=== PATIENT | male | born 1960 | race Caucasian/White ===

== ENCOUNTER 2020-05-01 13:51 | Emergency (ER) | payer MEDICARE, SELFPAY ==
[2020-05-01 13:52] VITALS: BP 149/87; PULSE 82; RESP 18; TEMP 36.5; O2SAT 97; BMI 29.2
[2020-05-01 14:01] VITALS: BMI 29.2
--- NOTE | 2020-05-01 14:03 | CT_ITS ---
PROCEDURE: CT ANGIO CHEST CLINCIAL INDICATION: left arm numb, severe back pain, chest pain COMPARISON: No exams were available for comparison TECHNIQUE: IV Contrast: 70ML OPTIRAY 350 Axial images obtained with sagittal and coronal reformats. All CT scans at the facility use one or more dose reduction, viz: automated exposure control, ma/kV adjustment per patient size (including targeted exams where dose is matched to indication, i.e. head), or iterative reconstruction technique. FINDINGS: No mediastinal adenopathy or mass evident. There is a small amount fluid in the superior recess of the pericardium. There is no evidence of aortic aneurysm or dissection. No evidence of pulmonary embolus. Pulmonary arteries are somewhat enlarged with a pulmonary artery/aortic ratio of greater than 1. There is also prominence of both right and left main pulmonary artery slightly more prominent on the right measuring up to 3.2 cm. There is a 13 mm noncalcified nodule in the right lower lobe somewhat. There is atelectatic or fibrotic change in the left upper lobe centrally. No lobar consolidation or collapse. No acute bony findings. There are at least 2 gallstones present 1 in the neck of the gallbladder. IMPRESSION: 1. No evidence of pulmonary embolus. The pulmonary arteries are enlarged centrally consistent. This may be seen with pulmonary arterial hypertension 2. Right lower lobe 13 mm noncalcified nodule. Consider PET-CT for further evaluation. If that is not performed then, would recommend follow-up exam in 3 months. Dictated b Bashir Dumont MD 05/01/2020 14:53 Bashir Dumont MD in [facility] 05/01/2020 14:53
--- NOTE | 2020-05-01 14:03 | HMH.EDGENADL ---
ED Disposition Clinical Impression: Chest pain Qualifiers: Chest pain type: unspecified Qualified Code(s): R07.9 - Chest pain, unspecified Back pain Qualifiers: Back pain location: thoracic back pain Chronicity: acute Back pain laterality: unspecified Qualified Code(s): M54.6 - Pain in thoracic spine Disposition: Home, Self-Care Condition on Discharge: Good Additional Instructions: Follow-up with your PCP this week. If you have any new, changing, worsening, or concerning symptoms, come back to the emergency department immediately. Referrals: PCP,No [Primary Care Provider] - Time of Disposition: 18:23 - Critical Care Critical Care Time: No Attestation: On , the high probability of a clinically significant, sudden or life threatening deterioration of the following system(s) required my full and direct attention, intervention and personal management. The time I documented below is in addition to time spent performing reported procedures but includes the following listed in this critical care notation. Medical Decision Making - Medical Records MR Comment: 59-year-old male with history of hypertension hyperlipidemia presents emergency department with chest and back pain and odd neurological findings in his upper and lower extremities. He arrives hemodynamically stable but is hypertensive. Given the description of his pain, aortic dissection immediately considered. Also considered ACS. Stroke is less likely based on our findings. Will get troponin, EKG, labs, CT of the chest and head and reassess. On reassessment, patient remains stable. About 30 minutes to an hour after his initial evaluation, his symptoms had stopped and at this time he is entirely asymptomatic. He has had 2- troponins and EKG without concerning changes. CT of the chest does not show dissection and nothing worrisome on the CT of his head which is personally reviewed and read by radiology. His blood pressure is normalized. Given that he is asymptomatic, and would desire to go home, I spoke with his primary physician who will arrange close follow-up for outpatient stress. In addition to that he was given strict return precautions to come straight back with any symptoms. He verbalizes understanding of this and agrees to the plan. Safe to discharge. - Amandeep Inquiry Pt receiving controlled substance: No Vital Signs: 05/01/20 13:52 05/01/20 14:41 05/01/20 16:00 Temperature 97.7 F Temperature Source Oral Pulse Rate Pulse Rate [Right Radial] 82 75 83 Respiratory Rate 18 18 Blood Pressure Blood Pressure [Right Arm] 149/87 H 130/82 113/66 Blood Pressure Mean [Right Arm] 107 98 81 Blood Pressure Source [Right Arm] Automatic Cuff Automatic Cuff Automatic Cuff Blood Pressure Position [Right Arm] Sitting Sitting Sitting 02 Sat by Pulse Oximetry 97 95 96 Oxygen Delivery Method Room Air Room Air Room Air 05/01/20 18:37 Temperature 97.7 F Temperature Source Oral Pulse Rate 85 Pulse Rate [Right Radial] Respiratory Rate 17 Blood Pressure 118/67 Blood Pressure [Right Arm] Blood Pressure Mean [Right Arm] Blood Pressure Source [Right Arm] Blood Pressure Position [Right Arm] 02 Sat by Pulse Oximetry Oxygen Delivery Method Room Air - Lab Data Lab Results 05/01/20 14:05: WBC 8.0, RBC 5.30, Hgb 16.8, Hct 47.0, MCV 88.8, MCH 31.8 H, MCHC 35.8 H, RDW 12.9, Plt Count 233, MPV 7.9, Neut % (Auto) 57.7, Lymph % (Auto) 28.8, [place] % (Auto) 7.9, Eos % (Auto) 4.8, Baso % (Auto) 0.8, Neut # (Auto) 4.6, Lymph # (Auto) 2.3, [place] # (Auto) 0.6, Eos # (Auto) 0.4, Baso # (Auto) 0.1 05/01/20 14:05: Sodium 137, Potassium 3.3 L, Chloride 98, Carbon Dioxide 29, Anion Gap 13.3, BUN 22 H, Creatinine 1.20, Estimated Creat Clear 89, Estimated GFR 62, Est GFR ( Amer) 75, Glucose 108 H, Calcium 10.2, Troponin I < 0.01 05/01/20 14:05: PT 10.4, INR 1.01, APTT 24.9 05/01/20 14:15: POC Glucose 111 H 05/01/20 17:00: Troponin I < 0.01 Result diagrams:
--- NOTE | 2020-05-01 14:06 | CT_ITS ---
PROCEDURE: CT HEAD/BRAIN WO CON CLINICAL INDICATION: weak LE, numb RUE COMPARISON: No exams were available for comparison TECHNIQUE: Axial images obtained. All CT scans at the facility use one or more dose reduction, viz: automated exposure control, ma/kV adjustment per patient size (including targeted exams where dose is matched to indication, i.e. head), or iterative reconstruction technique. FINDINGS: No midline shift, mass effect, intracranial hemorrhage, hydrocephalus, or extra-axial fluid collection is evident. The calvarium has an unremarkable appearance. No mastoid effusion. No sinus air-fluid level. IMPRESSION: No acute intracranial finding Dictated b Bashir Dumont MD 05/01/2020 14:45 Bashir Dumont MD in [facility] 05/01/2020 14:45
--- NOTE | 2020-05-01 14:10 | PC.NURSE ---
notified rad of orders on pt
--- NOTE | 2020-05-01 14:13 | PC.NURSE ---
notified rad pt is a stroke protocol-spoke with shirlene
[2020-05-01 14:17] LABS: POC Glucose,Bedside 111 (70-110)
--- NOTE | 2020-05-01 14:17 | PC.NURSE ---
fsbs 111
--- NOTE | 2020-05-01 14:17 | PC.NURSE ---
pt to CT
[2020-05-01 14:21] LABS: Basophils # 0.1 K/mm3 (0-0.2); Basophils % 0.8 % (0.1-2.0); Chloride 98 mmol/L (98-107); Eosinophils # 0.4 K/mm3 (0.0-0.4); Eosinophils % 4.8 % (0.1-12.0); Hemoglobin 16.8 g/dL (14.1-18.0); Lymphocytes # 2.3 K/mm3 (0.7-4.5); Lymphocytes % 28.8 % (10-50); Mean Corpuscular HGB Conc 35.8 g/dL (31.8-35.4); Mean Corpuscular Hemoglobin 31.8 pg (27.0-31.2); Mean Corpuscular Volume 88.8 fl (80-94); Mean Platelet Volume 7.9 fl (7.4-10.4); Monocytes # 0.6 K/mm3 (0.1-1.0); Monocytes % 7.9 % (1.7-9.3); Neutrophils # 4.6 K/mm3 (1.8-7.8); Neutrophils % 57.7 % (37.0-80.0); Platelet Count 233 K/mm3 (142-424); Red Cell Distribution Width 12.9 % (11.5-17.5)
[2020-05-01 14:22] LABS: Potassium 3.3 mmoL/L (3.5-5.1); Sodium 137 mmol/L (136-145)
[2020-05-01 14:24] LABS: Blood Urea Nitrogen 22 mg/dl (9-20); Creatinine Clearance Estimated 89 mL/min (50-200); Estimated Glomerular Filt Rate 62 ml/min (>60); GFR (African American) 75 ML/MIN (>60)
[2020-05-01 14:25] LABS: Anion Gap 13.3 mEq/L (5-15); Calcium 10.2 mg/dl (8.4-10.2); Carbon Dioxide 29 mmol/L (22.0-30.0); Glucose 108 mg/dl (74-100)
--- NOTE | 2020-05-01 14:36 | PC.NURSE ---
pt return from ct
[2020-05-01 14:41] VITALS: BP 130/82; PULSE 75; RESP 18; O2SAT 95
[2020-05-01 14:44] LABS: Troponin I < 0.01 ng/ml (0.00-0.034)
[2020-05-01 14:48] LABS: Activated Partial Thrombo Time 24.9 seconds (23.6-34.0); INR 1.01 (0.9-1.1); Prothrombin Time 10.4 seconds (9.4-11.8)
--- NOTE | 2020-05-01 15:33 | ECG_ITS ---
APPROVED REPORT Exam: Resting ECG HR:85 bpm ECG Measurements Heart Rate 85 AXES SD 158 P 58 QRSd 82 QRS 27 QT 360 T 45 QTc 428 <Conclusion> Normal sinus rhythm Normal ECG Electronically signed by : Tejas Ovalles, 05/02/2020 07:20:27
[2020-05-01 16:00] VITALS: BP 113/66; PULSE 83; O2SAT 96
[2020-05-01 17:36] LABS: Troponin I < 0.01 ng/ml (0.00-0.034)
[2020-05-01 18:37] VITALS: BP 118/67; PULSE 85; RESP 17; TEMP 36.5; O2SAT 99
== END 2020-05-01 18:38 | disposition home or self-care (01) ==
PROVIDERS: Emergency Provider Emergency Medicine
DX: R07.9 Chest pain, unspecified (principal); R53.1 Weakness; M54.6 Pain in thoracic spine; I10 Essential (primary) hypertension; E78.5 Hyperlipidemia, unspecified; F41.8 Other specified anxiety disorders; F43.10 Post-traumatic stress disorder, unspecified; Z87.442 Personal history of urinary calculi
CPT/HCPCS: 70450; 71275; 80048; 82962; 84484; 85025; 85610; 85730; 93005; 96365; 99284; Q9967

== ENCOUNTER → 2020-08-07 14:27 | Outpatient (CLI) | payer MEDICARE, SELFPAY ==
[2020-08-09 14:21] LABS: Covid-19 Nasal PCR Sendout Lex NOT DETECTED
== END ==
PROVIDERS: PCP Family Medicine; Visit Provider Family Medicine
DX: Z03.818 Encounter for observation for suspected exposure to other biological agents ruled out (principal)
CPT/HCPCS: U0004

== ENCOUNTER → 2020-11-20 19:31 | Outpatient (CLI) | payer MEDICARE, SELFPAY ==
[2020-11-20 20:35] LABS: Prostate Specific Ag Screen 2.1 ng/ml (0.0-4.0)
== END ==
PROVIDERS: Visit Provider Family Medicine
DX: Z12.5 Encounter for screening for malignant neoplasm of prostate (principal)
CPT/HCPCS: G0103

== ENCOUNTER → 2021-05-17 10:56 | Outpatient (CLI) | payer MEDICARE, SELFPAY ==
[2021-05-17 11:21] LABS: Basophils # 0.1 K/mm3 (0-0.2); Basophils % 1.3 % (0.1-2.0); Eosinophils # 0.6 K/mm3 (0.0-0.4); Eosinophils % 7.8 % (0.1-12.0); Hematocrit 48.7 % (42.0-52.0); Hemoglobin 16.9 g/dL (14.1-18.0); Lymphocytes # 2.2 K/mm3 (0.7-4.5); Lymphocytes % 30.3 % (10-50); Mean Corpuscular HGB Conc 34.8 g/dL (31.8-35.4); Mean Corpuscular Hemoglobin 30.9 pg (27.0-31.2); Mean Corpuscular Volume 88.9 fl (80-94); Mean Platelet Volume 7.6 fl (7.4-10.4); Monocytes # 0.4 K/mm3 (0.1-1.0); Neutrophils # 3.9 K/mm3 (1.8-7.8); Neutrophils % 54.6 % (37.0-80.0); Platelet Count 270 K/mm3 (142-424); Red Blood Count 5.48 M/mm3 (4.60-6.20); Red Cell Distribution Width 12.9 % (11.5-17.5); White Blood Count 7.2 K/mm3 (4.8-10.8)
[2021-05-17 11:56] LABS: Chloride 103 mmol/L (98-107); Sodium 141 mmol/L (136-145)
[2021-05-17 11:57] LABS: Potassium 4.2 mmoL/L (3.5-5.1)
[2021-05-17 11:59] LABS: Blood Urea Nitrogen 17 mg/dl (9-20); Estimated Glomerular Filt Rate 56 ml/min (>60); GFR (African American) 68 ML/MIN (>60)
[2021-05-17 12:00] LABS: Anion Gap 13.2 mEq/L (5-15); Calcium 9.7 mg/dl (8.4-10.2); Carbon Dioxide 29 mmol/L (22.0-30.0); Glucose 101 mg/dl (74-100)
== END ==
PROVIDERS: Visit Provider Surgery
DX: L72.3 Sebaceous cyst (principal); R07.9 Chest pain, unspecified
CPT/HCPCS: 36415; 80048; 85025

== ENCOUNTER → 2021-05-18 11:51 | Outpatient (CLI) | payer MEDICARE, SELFPAY | PROVIDERS: Visit Provider Surgery | DX: Z01.812 Encounter for preprocedural laboratory examination (principal); Z20.822 Contact with and (suspected) exposure to COVID-19; L72.3 Sebaceous cyst | CPT/HCPCS: U0003 ==

== ENCOUNTER 2021-05-21 06:02 | Day surgery (SDC) | payer MEDICARE, SELFPAY ==
[2021-05-15 13:41] VITALS: BMI 27.8
[2021-05-21] VITALS (11 sets, daily range): BP systolic 127–146; BP diastolic 73–88; PULSE 65–70; RESP 13–20; TEMP 36.2–36.4; O2SAT 95–100
--- NOTE | 2021-05-21 06:45 | P.PN_ITS ---
[facility] Anesthesia Checklist - Structural Data Admitted From: Home Planned Operative Procedure/s: excision neoplasm r shoulder Consent for Planned Operative Procedure(s) Verified: Yes - Additional verifications Anesthesia Reactions: No Hx Blood Transfusions: No Blood Transfusion Reaction: No - Airway Assessment C-Spine Mobility Assessed: Yes TMJ Mobility Assessed: Yes Dentition: Poor Dentition - Neurological Assessment Level of Consciousness: Awake, Alert, Appropriate - Anesthesia Plan Anesthesia Risk discussed: Yes Anesthesia Plan: Patient unable to respond/answer ASA Class: II Anesthesia Type: General [facility] History I have reviewed the patient's past medical history: Yes Medical History: Reports:: Anxiety, Depression, Hyperlipidemia, Hypertension, Kidney Stones Denies:: Cancer, Diabetes Mellitus Type 1, Diabetes Mellitus Type 2, Internal Pacemaker, MRSA, Seizures *Have you ever received a pneumonia vaccine?: No *Have you received a flu vaccine this season?: No Other Medical History: Denies: Blood Transfusion Reaction Anesthesia experience/problems:: none Other Surgeries: Yes: Colonoscopy. No: Pacemaker Amputation: No Fractures: No - *Social History Last grade of school completed: Some college Smoking Status: Never smoker Alcohol Intake: never Substance Use Type: denies use *Occupational Status:: disabled Housing: house Household Members: spouse *Travel in the last 8 weeks: None - Psychiatric History Pschychiatric History:: Reports:: Anxiety, Depression Family Hx:: No significant family history
--- NOTE | 2021-05-21 08:07 | P.OP_ITS ---
Date of procedure: 05/21/21 Pre-op Diagnosis:: Probable sebaceous cyst, right shoulder area Post-op Diagnosis:: Same Procedure performed:: Excision sebaceous cyst from right upper back, shoulder area (excisional length 4.0 cm) with intermediate complexity closure Surgeon:: Shailesh Garcia MD [employer] VICE PRESIDENT:: Sussy Osorio Anesthesia: LMA Estimated blood loss (mL): 20 Operative findings:: Consistent with likely previously ruptured inflamed sebaceous cyst Operative note:: Patient was taken to the operating room. He was positioned in supine position. General anesthesia was induced via LMA. He was then repositioned in left lateral position. The area was prepped and draped in the standard surgical fashion. Skin was marked with a skin marker for planned elliptical incision. Skin incision was made. Dissection was carried down through full-thickness of the dermis. Fibrotic tissue was encountered consistent with likely previously ruptured inflamed sebaceous cyst. This was dissected free using sharp dissection and sent off as specimen with the overlying skin ellipse. There was some residual tissue consistent with capsule and fibrosis. This was excised sharply in a piecemeal fashion and sent with specimen. Wound was irrigated. Hemostasis was achieved with electrocautery. The incision was closed with interrupted 2-0 Vicryl dermal sutures. Skin was closed with interrupted 3-0 nylon sutures with several central vertical mattress sutures. Clean dry sterile dressing was applied. Condition: stable Disposition: PACU Specimens:: Skin lesion right shoulder area Complications:: None immediately apparent
--- NOTE | 2021-05-21 08:13 | P.PN_ITS ---
[facility] Anesthesia Record Part I Intake, IV Amount: 400 Estimated blood loss (mL): 5 Urine output (mL): 0 Blood Pressure: 138/76 SaO2: 98 Pulse Rate: 66 Respiratory Rate: 13 Temperature: 97.3 F Patient is:: Drowsy, Oral/Nasal airway Stable to PACU at:: 08:12
--- NOTE | 2021-05-21 10:10 | HMH.ANESII ---
[facility] Anesthesia Record Part II Discharge Time: 08:42 Destination: Surgical Day Care (OP Surgery) PACU nurse assessment reviewed?: Yes Patient Condition:: Good Anesthesia Complications:: None Swallowing reflex intact?: Yes Cyanosis?: No Blood Pressure: 134/79 Pulse Rate: 70 Temperature: 97.3 F Mental Status: Alert & Oriented Pain level:: 1 Nausea and/or vomitting:: None Intake, IV Amount: 50
== END 2021-05-21 09:30 | disposition home or self-care (01) ==
LOC: OR 06:04
PROVIDERS: PCP Family Medicine; Visit Provider Surgery
DX: L72.3 Sebaceous cyst (principal); R52 Pain, unspecified; F41.9 Anxiety disorder, unspecified; F32.9 Major depressive disorder, single episode, unspecified; E78.5 Hyperlipidemia, unspecified; I10 Essential (primary) hypertension; Z79.899 Other long term (current) drug therapy
CPT/HCPCS: 11404; 12031; 88305; 96374

== ENCOUNTER → 2021-08-19 14:49 | Outpatient (CLI) | payer MEDICARE, SELFPAY ==
[2021-08-19 16:46] LABS: Alanine Aminotransferase 13 U/L (12-78); Albumin Level 4.3 g/dl (3.5-5.0); Albumin/Globulin Ratio 1.7 (1.1-1.8); Alkaline Phosphatase 76 U/L (38-126); Anion Gap 9.4 mEq/L (5-15); Aspartate Amino Transferase 27 U/L (17-59); Bilirubin,Total 0.4 mg/dl (0.2-1.3); Blood Urea Nitrogen 15 mg/dl (9-20); Calcium 9.6 mg/dl (8.4-10.2); Carbon Dioxide 34 mmol/L (22.0-30.0); Cholesterol 210 mg/dl (140-200); Estimated Glomerular Filt Rate 76 ml/min (>60); GFR (African American) 92 ML/MIN (>60); Globulin 2.6 g/dL (1.3-3.2); Glucose 89 mg/dl (74-100); HDL Cholesterol 30 mg/dl (40-60); Total Protein,Serum 6.9 g/dl (6.3-8.2); Triglycerides 164 mg/dl (30-150); VLDL Cholesterol 33 mg/dL (0-40)
[2021-08-19 16:54] LABS: Chloride 102 mmol/L (98-107)
[2021-08-19 16:55] LABS: Potassium 4.6 mmoL/L (3.5-5.1); Sodium 141 mmol/L (136-145)
[2021-08-19 16:57] LABS: Direct LDL Cholesterol 149.74 mg/dL (100-129)
== END ==
PROVIDERS: Visit Provider Family Medicine
DX: I10 Essential (primary) hypertension (principal)
CPT/HCPCS: 80053; 80061

== ENCOUNTER → 2021-11-26 13:17 | Outpatient (CLI) | payer MEDICARE, SELFPAY ==
[2021-11-26 14:07] LABS: Basophils # 0.1 K/mm3 (0-0.2); Basophils % 1.7 % (0.1-2.0); Eosinophils # 0.2 K/mm3 (0.0-0.4); Eosinophils % 2.4 % (0.1-12.0); Hematocrit 50.7 % (42.0-52.0); Hemoglobin 16.6 g/dL (14.1-18.0); Lymphocytes # 1.5 K/mm3 (0.7-4.5); Lymphocytes % 24.2 % (10-50); Mean Corpuscular HGB Conc 32.8 g/dL (31.8-35.4); Mean Corpuscular Hemoglobin 30.7 pg (27.0-31.2); Mean Corpuscular Volume 93.7 fl (80-94); Mean Platelet Volume 7.6 fl (7.4-10.4); Microalbumin/Creatinine Ratio 17.8; Monocytes # 0.4 K/mm3 (0.1-1.0); Monocytes % 6.9 % (1.7-9.3); Neutrophils % 64.8 % (37.0-80.0); Platelet Count 267 K/mm3 (142-424); Red Blood Count 5.42 M/mm3 (4.60-6.20); Red Cell Distribution Width 13.5 % (11.5-17.5); White Blood Count 6.2 K/mm3 (4.8-10.8)
[2021-11-26 14:10] LABS: Creatinine,Urine Random 164 mg/dL (Not Estab.)
[2021-11-26 14:23] LABS: Alanine Aminotransferase 26 U/L (12-78); Albumin Level 4.1 g/dl (3.5-5.0); Albumin/Globulin Ratio 1.8 (1.1-1.8); Alkaline Phosphatase 63 U/L (38-126); Anion Gap 9.4 mEq/L (5-15); Aspartate Amino Transferase 31 U/L (17-59); Bilirubin,Total 0.7 mg/dl (0.2-1.3); Blood Urea Nitrogen 15 mg/dl (9-20); Calcium 9.2 mg/dl (8.4-10.2); Carbon Dioxide 34 mmol/L (22.0-30.0); Chloride 101 mmol/L (98-107); Chol/HDL Ratio 6.4 (1-3.5); Cholesterol 179 mg/dl (140-200); Estimated Glomerular Filt Rate 86 ml/min (>60); GFR (African American) 104 ML/MIN (>60); Globulin 2.3 g/dL (1.3-3.2); Glucose 81 mg/dl (74-100); HDL Cholesterol 28 mg/dl (40-60); Hemoglobin A1C 5.1 % (4.0-6.0); Potassium 4.4 mmoL/L (3.5-5.1); Sodium 140 mmol/L (136-145); Total Protein,Serum 6.4 g/dl (6.3-8.2); Triglycerides 231 mg/dl (30-150); VLDL Cholesterol 46 mg/dL (0-40)
[2021-11-26 14:34] LABS: Direct LDL Cholesterol 100.39 mg/dL (100-129)
[2021-11-26 14:39] LABS: 25-OH Vitamin D, Total 69.6 ng/mL (30-100)
[2021-11-26 14:52] LABS: Prostate Specific Ag Screen 2.2 ng/ml (0.0-4.0)
== END ==
PROVIDERS: Visit Provider Family Medicine
DX: Z12.5 Encounter for screening for malignant neoplasm of prostate (principal); Z00.00 Encounter for general adult medical examination without abnormal findings; R07.9 Chest pain, unspecified; E11.9 Type 2 diabetes mellitus without complications; E55.9 Vitamin D deficiency, unspecified; R53.83 Other fatigue
CPT/HCPCS: 36415; 80053; 80061; 82043; 82306; 82570; 83036; 85025; G0103

== ENCOUNTER → 2022-05-16 16:45 | Outpatient (CLI) | payer MEDICARE, SELFPAY ==
[2022-05-16 17:31] LABS: Basophils # 0.1 K/mm3 (0-0.2); Basophils % 1.8 % (0.1-2.0); Eosinophils # 0.7 K/mm3 (0.0-0.4); Eosinophils % 9.5 % (0.1-12.0); Hematocrit 50.4 % (42.0-52.0); Hemoglobin 16.1 g/dL (14.1-18.0); Lymphocytes # 2.1 K/mm3 (0.7-4.5); Lymphocytes % 29.2 % (10-50); Mean Corpuscular Hemoglobin 30.9 pg (27.0-31.2); Mean Corpuscular Volume 96.5 fl (80-94); Mean Platelet Volume 7.8 fl (7.4-10.4); Monocytes # 0.5 K/mm3 (0.1-1.0); Monocytes % 6.7 % (1.7-9.3); Neutrophils # 3.8 K/mm3 (1.8-7.8); Neutrophils % 52.7 % (37.0-80.0); Platelet Count 250 K/mm3 (142-424); Red Blood Count 5.22 M/mm3 (4.60-6.20); Red Cell Distribution Width 13.1 % (11.5-17.5); White Blood Count 7.3 K/mm3 (4.8-10.8)
[2022-05-16 18:35] LABS: Alanine Aminotransferase 22 U/L (12-78); Albumin Level 3.9 g/dl (3.5-5.0); Albumin/Globulin Ratio 1.8 (1.1-1.8); Alkaline Phosphatase 79 U/L (38-126); Anion Gap 7.5 mEq/L (5-15); Aspartate Amino Transferase 30 U/L (17-59); Bilirubin,Total 0.3 mg/dl (0.2-1.3); Blood Urea Nitrogen 17 mg/dl (9-20); Calcium 9.3 mg/dl (8.4-10.2); Carbon Dioxide 33 mmol/L (22.0-30.0); Chloride 104 mmol/L (98-107); Chol/HDL Ratio 5.5 (1-3.5); Cholesterol 194 mg/dl (140-200); Estimated Glomerular Filt Rate 76 ml/min (>60); GFR (African American) 92 ML/MIN (>60); Globulin 2.2 g/dL (1.3-3.2); Glucose 91 mg/dl (74-100); HDL Cholesterol 35 mg/dl (40-60); Potassium 4.5 mmoL/L (3.5-5.1); Sodium 140 mmol/L (136-145); Total Protein,Serum 6.1 g/dl (6.3-8.2); Triglycerides 171 mg/dl (30-150); VLDL Cholesterol 34 mg/dL (0-40)
[2022-05-16 18:51] LABS: 25-OH Vitamin D, Total 60.6 ng/mL (30-100)
[2022-05-16 19:06] LABS: Thyroid Stimulating Hormone 1.56 uIU/mL (0.465-4.68)
[2022-05-19 23:23] LABS: Direct LDL Cholesterol 134 mg/dL (100-129)
[2022-05-26 15:10] LABS: Testosterone, Total, LC/MS 362.4 ng/dL (264.0-916.0)
== END ==
PROVIDERS: PCP Family Medicine; Visit Provider Family Medicine
DX: E78.5 Hyperlipidemia, unspecified (principal); R07.9 Chest pain, unspecified; E55.9 Vitamin D deficiency, unspecified; I10 Essential (primary) hypertension; R86.1 Abnormal level of hormones in specimens from male genital organs
CPT/HCPCS: 36415; 80053; 80061; 82306; 84402; 84403; 84443; 85025

== ENCOUNTER → 2023-06-04 23:48 | Outpatient (CLI) | payer MEDICARE, SELFPAY ==
[2023-06-04 19:35] LABS: Alanine Aminotransferase 25 U/L (12-78); Albumin Level 3.9 g/dl (3.5-5.0); Albumin/Globulin Ratio 1.4 (1.1-1.8); Alkaline Phosphatase 87 U/L (38-126); Anion Gap 11.2 mEq/L (5-15); Aspartate Amino Transferase 31 U/L (17-59); Bilirubin,Total 0.4 mg/dl (0.2-1.3); Blood Urea Nitrogen 20 mg/dl (9-20); Calcium 9.2 mg/dl (8.4-10.2); Carbon Dioxide 30 mmol/L (22.0-30.0); Chloride 103 mmol/L (98-107); Chol/HDL Ratio 7.2 (1-3.5); Cholesterol 201 mg/dl (140-200); Estimated Glomerular Filt Rate 76 ml/min (>60); GFR (African American) 92 ML/MIN (>60); Globulin 2.7 g/dL (1.3-3.2); Glucose 109 mg/dl (74-100); HDL Cholesterol 28 mg/dl (40-60); Potassium 4.2 mmoL/L (3.5-5.1); Sodium 140 mmol/L (136-145); Total Protein,Serum 6.6 g/dl (6.3-8.2); Triglycerides 312 mg/dl (30-150); VLDL Cholesterol 62 mg/dL (0-40)
[2023-06-04 19:46] LABS: Direct LDL Cholesterol 119.79 mg/dL (100-129)
[2023-06-04 20:06] LABS: Prostate Specific Ag Screen 1.9 ng/ml (0.0-4.0)
== END ==
PROVIDERS: PCP Family Medicine; Visit Provider Family Medicine
DX: E78.5 Hyperlipidemia, unspecified (principal); Z12.5 Encounter for screening for malignant neoplasm of prostate
CPT/HCPCS: 80053; 80061; G0103

== ENCOUNTER 2024-07-11 15:26 | Outpatient (CLI) | payer MEDICARE, SELFPAY ==
[2024-07-11 16:11] LABS: Basophils # 0.1 K/mm3 (0-0.2); Basophils % 1.2 % (0.1-2.0); Eosinophils # 0.9 K/mm3 (0.0-0.4); Eosinophils % 9.3 % (0.1-12.0); Hematocrit 45.6 % (42.0-52.0); Lymphocytes # 2.1 K/mm3 (0.7-4.5); Lymphocytes % 21.6 % (10-50); Mean Corpuscular HGB Conc 39.6 g/dL (31.8-35.4); Mean Corpuscular Volume 90.9 fl (80-94); Mean Platelet Volume 7.1 fl (7.4-10.4); Monocytes # 0.8 K/mm3 (0.1-1.0); Monocytes % 8.2 % (1.7-9.3); Neutrophils # 5.9 K/mm3 (1.8-7.8); Neutrophils % 59.7 % (37.0-80.0); Platelet Count 208 K/mm3 (142-424); Red Blood Count 5.02 M/mm3 (4.60-6.20); Red Cell Distribution Width 13.4 % (11.5-17.5); White Blood Count 9.9 K/mm3 (4.8-10.8)
[2024-07-11 16:31] LABS: Albumin Level 3.6 g/dl (3.5-5.0); Chloride 107 mmol/L (98-107); Sodium 139 mmol/L (136-145)
[2024-07-11 16:32] LABS: Potassium 4.3 mmoL/L (3.5-5.1)
[2024-07-11 16:34] LABS: Alanine Aminotransferase 24 U/L (12-78); Albumin/Globulin Ratio 1.7 (1.1-1.8); Alkaline Phosphatase 70 U/L (38-126); Anion Gap 6.3 mEq/L (5-15); Aspartate Amino Transferase 25 U/L (17-59); Bilirubin,Total 0.6 mg/dl (0.2-1.3); Blood Urea Nitrogen 22 mg/dl (9-20); Carbon Dioxide 30 mmol/L (22.0-30.0); Estimated Glomerular Filt Rate 68 ml/min (>60); GFR (African American) 82 ML/MIN (>60); Globulin 2.1 g/dL (1.3-3.2); Hemoglobin 18.1 g/dL (14.1-18.0); Total Protein,Serum 5.7 g/dl (6.3-8.2)
[2024-07-11 16:35] LABS: Calcium 9.5 mg/dl (8.4-10.2); Chol/HDL Ratio 5.8 (1-3.5); Cholesterol 167 mg/dl (140-200); Glucose 82 mg/dl (74-100); HDL Cholesterol 29 mg/dl (40-60); Triglycerides 285 mg/dl (30-150); VLDL Cholesterol 57 mg/dL (0-40)
[2024-07-11 16:46] LABS: Direct LDL Cholesterol 103.39 mg/dL (100-129)
== END 2024-07-11 23:59 | disposition home or self-care (01) ==
LOC: LAB 15:26
PROVIDERS: PCP Family Medicine; Visit Provider Family Medicine
DX: E78.5 Hyperlipidemia, unspecified (principal); E04.1 Nontoxic single thyroid nodule; I10 Essential (primary) hypertension; Z12.5 Encounter for screening for malignant neoplasm of prostate
CPT/HCPCS: 36415; 80053; 80061; 85025; G0103

== ENCOUNTER 2024-07-13 08:19 | Outpatient (CLI) | payer MEDICARE, SELFPAY ==
--- NOTE | 2024-07-13 08:21 | CT_ITS ---
FINAL REPORT TECHNIQUE: Axial CT images of the abdomen were obtained with IV contrast only. Coronal and sagittal reformatted images were also obtained. This study was performed with techniques to keep radiation doses as low as reasonably achievable (ALARA). Individualized dose reduction techniques using automated exposure control or adjustment of mA and/or kV according to the patient's size were employed. CLINICAL HISTORY: RUQ pain s/p grady COMPARISON: None FINDINGS: There is a pleural based 4 mm nodule present in the left lung base, seen best on image #1 of series 2. A small hiatal hernia is noted. There is mild fatty infiltration of the liver. The gallbladder is not visualized, and may have been surgically resected. There is no evidence of biliary ductal dilatation. The pancreas appears normal. The spleen size is within normal limits. There are multiple bilateral nonobstructing stones in the kidneys measuring up to 8 mm in size. There is a stone in the proximal right ureter, near the UPJ, 11 mm in size, that does not appear to be producing significant ureteral obstruction. There is no evidence of adenopathy. No abnormal fluid collection is seen. No localized inflammatory processes identified. IMPRESSION: Pleural-based 4 mm nodule in the left lung, as described above. By Fleischner criteria would suggest a follow-up CT in 1 year for further evaluation. Multiple bilateral nonobstructing renal stones, with a stone in the proximal right ureter, at the UPJ, which measures 11 mm in size, and does not appear to be obstructing the ureter. Reviewed, Interpreted and Dictated by Byron Mejía MD Transcribed by Samantha Mackenzie Authenticated and [facility]
[2024-07-13] MEDS: IOPAMIDOL-370 (76%);100ML BOTTLE 75 ML IV (08:42)
[2024-07-13] MEDS: SODIUM CHLORIDE 0.9% 10ML SYR (RAD ONLY) 10 ML IV (08:42)
== END 2024-07-13 23:59 | disposition home or self-care (01) ==
LOC: RAD 08:21
PROVIDERS: PCP Family Medicine; Visit Provider Nurse Practitioner
DX: R10.11 Right upper quadrant pain (principal); Z90.49 Acquired absence of other specified parts of digestive tract
CPT/HCPCS: 74160; Q9967